=== PATIENT | female | born 1935 | race African-American/Black ===

== ENCOUNTER 2021-03-12 08:57 | Outpatient (CLI) | payer MEDICARE | END 2021-03-12 08:58 | disposition home or self-care (01) | LOC: CSHMAMMO 08:57 | PROVIDERS: ATTEND Family Medicine | DX: Z12.31 Encounter for screening mammogram for malignant neoplasm of breast (principal) | CPT/HCPCS: 77063; 77067 ==

== ENCOUNTER 2022-03-19 14:54 | Outpatient (CLI) | payer MEDICARE | END 2022-03-19 14:55 | disposition home or self-care (01) | LOC: CSHMAMMO 14:54 | PROVIDERS: ATTEND Family Medicine | DX: Z12.31 Encounter for screening mammogram for malignant neoplasm of breast (principal) | CPT/HCPCS: 77063; 77067 ==